=== PATIENT | male | born 1940 | race Caucasian/White ===

== ENCOUNTER 2018-11-29 17:53 | Inpatient (IN) ==
--- NOTE | 2018-11-29 19:19 | Diag Imaging Result Doc PS360 ---
EXAM: CHEST-2 VIEWS 11/29/2018 HISTORY: sob TECHNIQUE: PA and lateral chest COMMENT: There is platelike opacity in both lung bases. There are no previous studies. The inspiration is somewhat suboptimal. IMPRESSION: Bibasilar subsegmental atelectasis. Electronically signed by Leobardo Edge 11/29/2018 7:17 PM
[2018-11-29 19:30] LABS: AGAP 17; ALBUMIN 4.3 g/dL (3.5-5.0); ALKALINE PHOSPHATASE 126 U/L (32-122); BUN 30 mg/dL (8-22); CALCIUM 10.1 mg/dL (8.8-10.2); CHLORIDE 102 mmol/L (98-107); CK PROFILE 59 U/L (24-204); COSMO 302; CREATININE 1.1 mg/dL (0.7-1.2); ESTIMATED GFR > 60; GLUCOSE 357 mg/dL (70-104); GOT 23 U/L (10-34); GPT 29 U/L (10-44); POTASSIUM 3.7 mmol/L (3.5-5.1); SODIUM 141 mmol/L (136-145); TCO2 22 mmol/L (25-35); TOTAL PROTEIN 7.7 g/dL (6.3-8.3)
[2018-11-29 19:37] LABS: INR 1.22
[2018-11-29 19:38] LABS: PTT 33.7 Seconds (22.3-41.8)
[2018-11-29 19:40] LABS: BASO# 0.03 X1000 (0.0-0.2); BASO% 0.2 % (0.0-0.8); EOS# 0.03 X1000 (0.0-0.7); EOS% 0.2 % (0.0-10.0); HEMATOCRIT 42.5 % (42.0-52.0); HEMOGLOBIN 15.6 g/dL (14.0-18.0); IMM GRAN# 0.03 X1000 (0.0-0.04); IMM GRAN% 0.2 % (0.0-0.5); LYMPH# 0.73 X1000 (1.2-3.4); LYMPH% 5.5 % (20.5-51.1); MCH 32.7 PG (27-31); MCHC 36.7 g/dL (33-37); MCV 89.1 FL (81-99); MONO# 0.95 X1000 (0.11-0.59); MONO% 7.1 % (1.7-9.3); MPV 9.7 FL (7.4-10.4); NEUT# 11.54 X1000 (1.4-6.5); NEUT% 86.8 % (42.2-75.2); PLT 316 X1000 (130-400); RBC 4.77 XMIL (4.7-6.1); RDW 11.9 % (11.5-14.5); WBC 13.31 X1000 (4.8-10.8)
[2018-11-29 21:24] LABS: URINE SOURCE CATH
[2018-11-29 21:37] LABS: BILIRUBIN URINE NEGATIVE (NEGATIVE); BLOOD URINE NEGATIVE (NEGATIVE); CLARITY CLEAR (CLEAR); COLOR AMBER; KETONE URINE 1+(Small) mg/dL (NEGATIVE); LEUKOCYTES URINE 1+ (NEGATIVE); NITRITE URINE NEGATIVE (NEGATIVE); PROTEIN URINE 2+(100 mg/dL) mg/dL (NEGATIVE); UROBILINOGEN URINE 1 mg/dL
[2018-11-29 21:56] LABS: URINE BACTERIA 2+ /HFP; URINE EPITHELIAL CELLS <10 /HPF (<10); URINE RBC <10 /HPF (<10); URINE WBC <10 /HPF (<10); URINE YEAST NONE SEEN /HPF
[2018-11-29 21:57] LABS: URINE CAST GRANULAR PRESENT /LPF; URINE CRYSTAL NONE SEEN /HPF
[2018-11-29 23:48] LABS: OCCULT BLOOD 1 NEGATIVE (NEGATIVE)
[2018-11-30] MEDS ORDERED: NS 2,000 ML IV ONE (03:16)
[2018-11-30] MEDS ORDERED: ZOSYN 3.375 GM in NS 50 ML IV ONE (03:18)
--- NOTE | 2018-11-30 07:47 | Diag Imaging Result Doc PS360 ---
EXAM: CT ABD/PELVIS W/IV CONT ONLY INDICATION: pain TECHNIQUE: This exam was performed using automated exposure control, adjustment of mA or kV according to patient size, and/or use of iterative reconstruction technique. COMPARISON: None. FINDINGS: There is mild subsegmental atelectasis at the lung bases. There is evidence of prior granulomatous disease. The liver, gallbladder, spleen, pancreas, and adrenal glands are essentially unremarkable. There are several simple appearing renal cysts bilaterally, more prominent on the right. At the lower pole of the left kidney, there is a 1 cm nodule arising from the cortex that is isodense to the cortex. It is nonspecific and could represent a blood filled cyst. Consider at least follow-up with renal ultrasound. The urinary bladder is unremarkable. The prostate is mildly enlarged. The appendix is normal. There are moderately distended loops of small bowel in the mid and upper abdomen and the stomach is mildly distended. There does appear to be a transition point at the right mid abdomen (see image 104, series 2). This suggests at least a partial small bowel obstruction. Distal to this, the small bowel is decompressed. No focal bowel wall thickening is appreciated. A small duodenal diverticulum is noted incidentally. The remainder of the GI tract is grossly unremarkable. There are degenerative changes throughout the spine and at both hips. IMPRESSION: 1.Moderately distended loops of small bowel with a transition point as described suggesting obstruction. 2.1 cm nodule at the lower pole of the left kidney that is nonspecific. Consider follow-up at least with renal ultrasound. Electronically signed by Justino Hernandez 11/30/2018 7:44 AM
--- NOTE | 2018-11-30 07:56 | Diag Imaging Result Doc PS360 ---
EXAM: ABDOMEN FLAT/UPRIGHT INDICATION: abd pain TECHNIQUE: 3 views COMPARISON: None. FINDINGS: There are moderately gas-distended loops of small bowel throughout the abdomen with air-fluid levels indicating obstruction versus ileus. There is no evidence of large volume free abdominal gas. No definite organomegaly is appreciated. IMPRESSION: Moderately distended loops of small bowel suggesting obstruction versus ileus. Electronically signed by Justino Hernandez 11/30/2018 7:53 AM
--- NOTE | 2018-11-30 09:02 | EKG Report ---
Test Performed on : 11/29/2018 6:36:59 PM Test Reason : shortness of breath Blood Pressure : / mmHG Vent. Rate : 103 BPM Atrial Rate : 103 BPM P-R Int : 206 ms QRS Dur : 100 ms QT Int : 360 ms P-R-T Axes : 049 060 056 degrees QTc Int : 471 ms Sinus tachycardia. Otherwise normal ECG No previous ECGs available Unconfirmed Result
--- NOTE | 2018-11-30 09:26 | Diag Imaging Result Doc PS360 ---
EXAM: KUB ABDOMEN INDICATION: sbo TECHNIQUE: 2 views COMPARISON: 11/29/2018 FINDINGS: Small bowel distention suggesting at least a partial obstruction is again identified. There does appear to be some improvement in the degree of distention of small bowel. Otherwise, the abdomen is essentially stable. IMPRESSION: Some improvement of gaseous distention of small bowel. Electronically signed by Justino Hernandez 11/30/2018 9:23 AM
[2018-11-30] MEDS ORDERED: ZOFRAN IV PRN (13:32)
[2018-11-30] MEDS: HUMULIN R SUBQ SCH ×2 (16:46→22:27)
[2018-11-30] MEDS: PROTONIX IV SCH (16:46)
[2018-11-30] MEDS: ROCEPHIN 1 GM in NS 50 ML IV SCH (16:46)
[2018-11-30] MEDS: SODIUM CHLORIDE 0.9% INJ SCH (16:46)
--- NOTE | 2018-11-30 19:35 | HISTORY AND PHYSICAL ---
PRIMARY CARE PHYSICIAN: In [place]. HISTORY OF PRESENT ILLNESS: Mr. Thao is a 78-year-old male with a history of chronic atrial fibrillation, stroke in the past affecting his speech and memory, and history of PE. He presents with 48 hours of abdominal pain, distention, and discomfort. The patient is a poor historian. Family at the bedside states they were eating yesterday, and he started having abdominal pain to the point where he was not comfortable. He could not sit still, and they brought him to the ER for evaluation last night. In the ER he was noted to have a small bowel obstruction by CT. He has not had any real vomiting, just abdominal pain and distention. He has improved somewhat this morning with IV fluids and bowel rest. He has had a bowel movement, and repeat KUB shows very slight improvement. Currently there are no inpatient beds at [facility]. We are going to admit him here and monitor him closely. If he has any worsening, he may need to be transferred to [facility]. PAST MEDICAL HISTORY: 1. Chronic atrial fibrillation, on anticoagulation. 2. History of stroke affecting speech and memory. 3. Diabetes mellitus type 2. 4. History of PE. 5. Hypertension. 6. Asthma. 7. BPH. 8. Bladder cancer. PAST SURGICAL HISTORY: Bladder resection, hernia repair, DC cardioversion. SOCIAL HISTORY: No tobacco, alcohol or drug use. Family is at the bedside. He is from [place] visiting his daughter, who lives here in [place]. FAMILY HISTORY: Noncontributory. REVIEW OF SYSTEMS: A 10-point review of systems was obtained and found to be negative with the exception of the HPI. HOME MEDICATIONS: Yet to be compiled. He is on Eliquis and aspirin. ALLERGIES: Apple, Keflex, unspecified tree nut, pecan nut, and soy. PHYSICAL EXAMINATION: VITAL SIGNS: Blood pressure is 147/88, heart rate 86, respiratory rate 96% on room air, temperature 98 degrees Fahrenheit. GENERAL: This is a well-developed, well-nourished male lying in the hospital bed in no acute distress. NEUROLOGIC: He is somewhat lethargic. He answers orientation questions incorrectly with respect to the date and the place but is able to name our President. He follows commands without focal deficits. HEENT: Head is atraumatic and normocephalic. Pupils are equal, round and reactive to light. Oral mucosa is a bit dry. NECK: Trachea is midline. There is no JVD. CHEST: Clear to auscultation bilaterally. CV: Irregular rate and rhythm. S1 and S2 is noted. GI: Slightly distended and tender to palpation in the epigastric region. Bowel sounds are active. EXTREMITIES: No edema. Pulses 1+ bilaterally. DIAGNOSTIC DATA: Chest x-ray - bibasilar subsegmental atelectasis. EKG - sinus tachycardia. Abdominal x-ray - moderately distended loops of small bowel, suggesting obstruction versus ileus. Abdomen and pelvis CT - moderately distended loops of small bowel with transition point as described, suggesting obstruction. A 2.1 cm nodule at the lower pole of the left kidney that is nonspecific. Consider followup with at least a renal ultrasound. A KUB on 11/30/2018 showed some improvement in gaseous distention of small bowel. WBCs 13.31, hemoglobin 15.6, hematocrit 42.5, platelet count 316. INR 1.22. Sodium 141, potassium 3.7, chloride 102. CO2 is 22, anion gap 17, BUN 30, creatinine 1.1, glucose 357. AST is 23, ALT 21, alkaline phosphatase 126. Troponin negative. ProBNP 250. Lactic acid 2.3. UA shows a questionable urinary tract infection. Occult blood is negative. ASSESSMENT/PLAN: 1. Small bowel obstruction: Improving. We will give him clear liquids and see how he tolerates that. We will consult surgery and check serial KUBs. Will make sure he has Zofran, Protonix and IV fluids. 2. Urinary tract infection. The patient is really unable to verbalize if he has any dysuria. He has a history of confusion, so we will go ahead and treat and follow culture data. 3. Diabetes mellitus. Will add pattern sugar and sliding-scale insulin. Will also check a hemoglobin A1c. 4. Paroxysmal atrial fibrillation, on anticoagulation, currently in sinus rhythm. Will hold his anticoagulant in case he needs surgery. Continue to monitor him on telemetry. 5. Deep venous thrombosis prophylaxis with sequential compression devices. 6. Further recommendations to follow. Dictated by PENELOPE Prather for Oj George MD cc: PENELOPE Prather MD [facility]
--- NOTE | 2018-12-01 02:42 | HISTORY AND PHYSICAL ---
ADDENDUM: Patient seen and examined by myself. Full note dictated and discussed with nurse practitioner. Patient initially presented to the hospital with shortness of breath. He was noted to have abdominal distention. We will admit patient to the hospital. Advance diet as tolerated. Certainly is possible he has urinary tract infection. We will treat with antibiotics until culture is negative. PLAN: We will continue antibiotics. Continue to follow. Further orders as needed. cc: Oj George MD
[2018-12-01 06:44] LABS: HEMATOCRIT 40.8 % (42.0-52.0); HEMOGLOBIN 14.6 g/dL (14.0-18.0); MCH 32.8 PG (27-31); MCHC 35.8 g/dL (33-37); MCV 91.7 FL (81-99); MPV 9.6 FL (7.4-10.4); RBC 4.45 XMIL (4.7-6.1); RDW 11.9 % (11.5-14.5); WBC 5.52 X1000 (4.8-10.8)
[2018-12-01] MEDS: HUMULIN R SUBQ SCH ×4 (07:02→22:07)
[2018-12-01 07:24] LABS: AGAP 11; BUN 13 mg/dL (8-22); CALCIUM 8.6 mg/dL (8.8-10.2); CHLORIDE 103 mmol/L (98-107); COSMO 285; CREATININE 0.8 mg/dL (0.7-1.2); ESTIMATED GFR > 60; GLUCOSE 197 mg/dL (70-104); MAGNESIUM 1.4 mg/dL (1.5-2.7); POTASSIUM 3.3 mmol/L (3.5-5.1); SODIUM 140 mmol/L (136-145); TCO2 26 mmol/L (25-35)
--- NOTE | 2018-12-01 09:51 | Diag Imaging Result Doc PS360 ---
EXAM: KUB ABDOMEN HISTORY: sbo eval TECHNIQUE: Abdomen single view COMPARISON: 11/30/2018 FINDINGS: There are multiple dilated small bowel loops in the mid abdomen. These have not decreased in prominence compared to the prior exam. No organomegaly. Prominent degenerative changes to the lumbar spine. Prominent atherosclerosis. IMPRESSION: No improvement in the dilated small bowel loops consistent with at least a partial obstruction. Electronically signed by Remigio Martinez 12/01/2018 9:49 AM
[2018-12-01] MEDS ORDERED: MAGNESIUM SULFATE 2 GM/S.W.I. 2 GM/50 ML IVPB IV ONE (14:23)
[2018-12-01] MEDS ORDERED: KLOR-CON PO ONE (14:33)
[2018-12-01] MEDS: POTASSIUM CHLORIDE 20 MEQ in 1/2 NS 1,000 ML IV SCH (17:01)
[2018-12-01] MEDS: PROTONIX IV SCH (17:09)
[2018-12-01] MEDS: ROCEPHIN 1 GM in NS 50 ML IV SCH (17:09)
[2018-12-01] MEDS: SODIUM CHLORIDE 0.9% INJ SCH (17:09)
--- NOTE | 2018-12-01 17:37 | PROGRESS NOTE ---
DATE: 12/01/2018 SUBJECTIVE: The patient is lying comfortably in bed. He is still having some abdominal distention, but he feels better. He has been passing gas and he has been tolerating a liquid diet. He is not having nausea or vomiting. Abdomen x-ray today showed no improvement in the dilated small bowel loops consistent with at least partial obstruction. I have placed this patient back on most of his home medications, but I will hold for now his anticoagulation. I have consulted Surgery department and actually I personally called Dr. Sepulveda to talk about this case. I will replace the potassium. I will replace the magnesium. I will put this patient also on gentle IV fluids with some potassium as well. Kidney function looks better. OBJECTIVE: Vital Signs: Temperature 97.9 degrees, pulse 72, respiratory rate 18, blood pressure 151/89, oxygen saturation 95% on room air. HEENT: Head normocephalic. No trauma. PERRLA. Neck: Supple. No JVD. No masses. Central trachea. Chest: Clear to auscultation. No wheezing. No rales. Cardiovascular: Regular rhythm and rate. Abdomen: Soft, distended, but positive bowel sounds, no signs of peritoneal irritation. Extremities: No edema, no clubbing, no cyanosis. Neurological: The patient is alert. He is oriented. He is answering all my questions. LABORATORY DATA: WBC 5.5, hemoglobin 14.6, hematocrit 40.8, platelets 247,000. Sodium 140, potassium 3.3, chloride 103, bicarbonate 26, BUN 13, creatinine 0.8, glucose 197, calcium 8.6, magnesium 1.4. ASSESSMENT AND PLAN: 1. Small bowel obstruction, probably partial obstruction. He is tolerating liquid diet. He has been passing gas. His abdomen is still distended and the x-ray still shows bowel dilatation. I have consulted Surgery department to evaluate this patient. I will continue with liquid diet and I have placed this patient back on most of his home medication. 2. Possible urinary tract infection. This patient upon admission was really unable to verbalize if he has any dysuria since he was confused apparently, so he was placed on antibiotics. We will just continue with that and monitor the cultures. Blood culture negative so far. In the urine, he has some bacteria but no nitrates. 3. Type 2 diabetes. We will continue with pattern of blood sugar and sliding scale insulin. I will check a hemoglobin A1c. 4. Paroxysmal atrial fibrillation. At this moment, he seems to be in sinus rhythm. We held the anticoagulation just in case he needs surgery. He seems to be feeling better, but his abdomen is still distended and the x-ray still showing at least partial obstruction. 5. Deep vein thrombosis prophylaxis with sequential compression devices. 6. Previous history of stroke, aware. cc: Mitesh Gregory MD
[2018-12-01] MEDS: DULCOLAX PR SCH ×2 (18:36→21:56)
[2018-12-01] MEDS: LOPRESSOR PO SCH (18:37)
[2018-12-01] MEDS: CARDIZEM CD PO SCH (18:37)
[2018-12-01] MEDS: PRILOSEC PO SCH (18:37)
--- NOTE | 2018-12-01 19:12 | GENERAL SURGERY CONSULTATION ---
DATE: 12/01/2018 REQUESTING PHYSICIAN: Mitesh Gregory MD REASON FOR CONSULTATION: Small bowel obstruction. HISTORY OF PRESENT ILLNESS: A 78-year-old male with a history of chronic atrial fibrillation, stroke in the past, history of PE, with multiple abdominal surgeries, presenting now with abdominal discomfort. He was seen in emergency department and had a CT scan that showed a small bowel obstruction with possible transition point in the right side. He is feeling better now, is tolerating clear liquid diet. He is passing gas and having bowel movements, but his abdominal film still seems to be somewhat showing an obstruction. Currently, he has been transferred over from the [facility] to [facility] and is doing okay. He has been hemodynamically stable. I was asked to weigh an opinion. PAST MEDICAL HISTORY: 1. Chronic atrial fibrillation. 2. History of stroke. 3. Diabetes mellitus, type 2. 4. History of PE. 5. Hypertension. 6. Asthma. 7. BPH. 8. History of bladder cancer. PAST SURGICAL HISTORY: Includes bladder resection, hernia repair x2, DC cardioversion. SOCIAL HISTORY: No alcohol, tobacco, or illicit drugs. The patient currently lives in [place]. FAMILY HISTORY: Reviewed with patient and noncontributory. HOME MEDICATIONS: Of note, he is on Eliquis. Full list reviewed. ALLERGIES: Cephalosporins and apples. REVIEW OF SYSTEMS: A full 10 point review of systems was obtained and negative, except as specified in the HPI. PHYSICAL EXAMINATION: Vital Signs: Patient was currently afebrile. His vital signs were stable. General: No acute distress. HEENT: Normocephalic, atraumatic. Pupils equal, round, and reactive to light. Mucous membranes moist. Oropharynx benign. Neck: Supple. Trachea midline. Cardiovascular: Irregularly irregular. Lungs: Grossly clear. Abdomen: Soft ,some distention, and some mild tenderness, but no real peritoneal signs. Extremities: He moves all extremities. Neurologic: Grossly intact. Skin: No signs of jaundice. Vascular: All extremities perfused. DIAGNOSTIC STUDIES: Laboratories from today were reviewed. Imaging from this morning and CT scan reviewed. ASSESSMENT AND PLAN: A 78-year-old with small bowel obstruction. 1. Small bowel obstruction. At this time, clinically, it sounds like he is improving. We will continue with current regimen. We will follow up with the a.m. films. At this point, we will try to avoid surgery and make sure the patient continues to progress. He has some signs of return of bowel function so hopefully again, this will continue. 2. Multiple medical comorbidities, currently being managed by the hospitalist service. cc: Wilmer Sepulveda MD
[2018-12-02 07:38] LABS: HEMATOCRIT 38.1 % (42.0-52.0); HEMOGLOBIN 13.6 g/dL (14.0-18.0); MCH 32.3 PG (27-31); MCHC 35.7 g/dL (33-37); MCV 90.5 FL (81-99); MPV 9.6 FL (7.4-10.4); RBC 4.21 XMIL (4.7-6.1); RDW 11.9 % (11.5-14.5); WBC 5.34 X1000 (4.8-10.8)
[2018-12-02 07:57] LABS: AGAP 11; BUN 9 mg/dL (8-22); CALCIUM 8.6 mg/dL (8.8-10.2); CHLORIDE 103 mmol/L (98-107); COSMO 278; CREATININE 0.8 mg/dL (0.7-1.2); ESTIMATED GFR > 60; GLUCOSE 122 mg/dL (70-104); MAGNESIUM 1.7 mg/dL (1.5-2.7); POTASSIUM 3.9 mmol/L (3.5-5.1); SODIUM 139 mmol/L (136-145); TCO2 25 mmol/L (25-35)
[2018-12-02] MEDS: HUMULIN R SUBQ SCH ×4 (09:38→23:46)
--- NOTE | 2018-12-02 10:34 | GENERAL SURGERY PROGRESS NOTE ---
DATE: 12/02/2018 SUBJECTIVE: Patient seems to be doing better. He says he has passed gas and had a bowel movement. He is not complaining of any abdominal pain. OBJECTIVE: Vital Signs: Patient is currently afebrile. Vital signs are stable. General: No acute distress. HEENT: Normocephalic, atraumatic. Pupils equal, round, reactive to light. Mucous membranes moist. Oropharynx benign. Neck: Supple. Trachea midline. Cardiovascular: Regular rate and rhythm. Lungs: Grossly clear. Abdomen: Soft, nontender. Mild distention. Extremities: Moves all extremities. Neurologic: Grossly intact. Skin: No signs of jaundice. Vascular: All extremities perfused. LABORATORY: None this morning as of yet. ASSESSMENT AND PLAN: A 78-year-old gentleman with resolving small bowel obstruction. Resolving small bowel obstruction: At this time, we will try him on a gastrointestinal soft diet to see how he does. If he does not seem to make any improvement, we will back off his diet. Otherwise, we will continue to make forward progress. cc: Wilmer Sepulveda MD
[2018-12-02] MEDS: PROSCAR PO SCH (10:53)
[2018-12-02] MEDS: PRILOSEC PO SCH (10:53)
[2018-12-02] MEDS: CARDIZEM CD PO SCH (10:54)
[2018-12-02] MEDS: LOPRESSOR PO SCH (10:54)
[2018-12-02] MEDS: ELIQUIS PO SCH ×2 (10:54→20:42)
[2018-12-02] MEDS: DULCOLAX PR SCH ×2 (10:54→20:42)
--- NOTE | 2018-12-02 11:18 | Diag Imaging Result Doc PS360 ---
EXAM: KUB ABDOMEN - 12/02/2018 HISTORY: sbo eval TECHNIQUE: Portable AP spine abdomen COMPARISON: 12/01/2018 FINDINGS: There has been interval decrease in gaseous small bowel distention. There is gas visible in multiple nondistended to slightly distended small bowel loops. There is gas visible in nondistended colon. IMPRESSION: Interval decrease in gaseous small bowel distention. Electronically signed by Terrance Wilkerson 12/02/2018 11:16 AM
[2018-12-02] MEDS ORDERED: FLOMAX PO SCH (13:00)
--- NOTE | 2018-12-02 13:52 | PROGRESS NOTE ---
DATE: 12/02/2018 SUBJECTIVE: Patient lying comfortably in bed, as per the patient, he had a bowel movement yesterday and he has been passing gas. X-ray looks better. The diet has been advanced. We will monitor this patient. I want him to walk a little bit more today. OBJECTIVE: Vital Signs: Temperature 97.8 degrees, pulse 97, respiratory rate 20, blood pressure 120/66, oxygen saturation 94% on room air. HEENT: Head normocephalic. No trauma. PERRLA. Neck: Supple. No JVD. No masses. Central trachea. Chest: Clear to auscultation. No wheezing. No rales. Abdomen: Soft, distended, but positive bowel sounds. No signs of peritoneal irritation. Extremities: No edema. No clubbing. No cyanosis. Neurological: Alert and oriented. He is answering my questions. LABORATORY DATA: WBC 5.3, hemoglobin 13.6, hematocrit 38.1, platelets 251,000. Sodium 139, potassium 3.9, chloride 103, bicarbonate 25, BUN 9, creatinine 0.8, glucose 122, calcium 8.6, magnesium 1.7. ASSESSMENT AND PLAN: 1. Small-bowel obstruction. I do believe this is getting better. His diet has been advanced. X- ray looks better compared with the previous days, he has been passing gas and apparently he had a bowel movement. Surgery Department on board. We will monitor this patient closely, I will ask for more physical activity on this patient. 2. Possible urinary tract infection. This patient upon admission was really unable to verbalize if he was having dysuria, so he was started on antibiotics. Blood culture so far negative. 3. Type 2 diabetes. Continue with patterning of blood sugar and sliding scale insulin. Hemoglobin A1c around 9, is a little bit uncontrolled. 4. Paroxysmal atrial fibrillation. At this moment, we continue with his home medications, we will continue to monitor, he has been placed on his anticoagulation again. Blood pressure is stable. 5. Deep vein thrombosis prophylaxis with sequential compression devices. 6. Previous history of stroke. Aware. cc: Mitesh Gregory MD
[2018-12-02] MEDS: PROTONIX IV SCH (15:43)
[2018-12-02] MEDS: SODIUM CHLORIDE 0.9% INJ SCH (15:43)
[2018-12-02] MEDS: ROCEPHIN 1 GM in NS 50 ML IV SCH (17:17)
[2018-12-02] MEDS: POTASSIUM CHLORIDE 20 MEQ in 1/2 NS 1,000 ML IV SCH (20:41)
[2018-12-02] MEDS: GLUCOPHAGE XR PO SCH (20:47)
[2018-12-03] MEDS: HUMULIN R SUBQ SCH (06:39)
--- NOTE | 2018-12-03 07:24 | GENERAL SURGERY PROGRESS NOTE ---
DATE: 12/03/2018 SUBJECTIVE: The patient seems to be doing okay. He has had bowel movements. He is tolerating his diet. He had hamburgers last night. OBJECTIVE: Vital Signs: The patient is currently afebrile. His vital signs are stable. General: No acute distress. HEENT: Normocephalic, atraumatic. Pupils equal, round, reactive to light. Mucous membranes moist. Oropharynx benign. Neck: Supple. Trachea midline. Cardiovascular: Regular rate and rhythm. Lungs: Grossly clear. Abdomen: Soft. Minimally distended, but nontender. No peritoneal signs. Extremities: Moves all extremities. Neurologic: Grossly intact. Skin: No signs of jaundice. Vascular: All extremities perfused. LABORATORY DATA: None this morning as of yet. ASSESSMENT AND PLAN: A 78-year-old gentleman with resolving small bowel obstruction. Resolving small bowel obstruction. At this time, I think he is likely safe to be discharged. He is tolerating a regular diet. The patient probably can drive back to [place]. cc: Wilmer Sepulveda MD
[2018-12-03 07:44] VITALS: BP 159/79
[2018-12-03] MEDS: LOPRESSOR PO SCH (09:33)
[2018-12-03] MEDS: PRILOSEC PO SCH (09:33)
[2018-12-03] MEDS: ELIQUIS PO SCH (09:33)
[2018-12-03] MEDS: PROSCAR PO SCH (09:33)
[2018-12-03] MEDS: CARDIZEM CD PO SCH (09:33)
[2018-12-03] MEDS: GLUCOPHAGE XR PO SCH (09:33)
[2018-12-03] MEDS: DULCOLAX PR SCH (09:33)
--- NOTE | 2018-12-03 21:00 | DISCHARGE SUMMARY ---
ADMISSION DATE: 11/30/2018 DISCHARGE DATE: 12/03/2018 DISCHARGE DIAGNOSES: 1. Small bowel obstruction/resolved. 2. Possible urinary tract infection, no symptoms. 3. Type 2 diabetes, hemoglobin A1c 9. 4. Paroxysmal atrial fibrillation. 5. Possible previous history of stroke. PROCEDURES PERFORMED: 1. Chest x-ray dated 11/29/2018 impression, bibasilar subsegmental atelectasis. Abdomen x-ray dated 11/29/2018 impression, moderately distended loops of small bowel suggesting obstruction versus ileus. 2. Abdomen and pelvis CT scan dated 11/29/2018 impression, moderately distended loops of small bowel with a transition point suggesting obstruction, 2.1 cm nodule at the lower pole of the kidney that is nonspecific. Abdomen x-ray dated 11/30/2018 impression, some improvement of the gaseous distention of the small bowel. 3. Abdomen x-ray dated 12/01/2018 impression no improvement in the dilated small bowel loops consistent with at least partial obstruction. Abdomen x-ray dated 12/02/2018, interval decrease in gaseous small bowel distention. CONSULTS: Surgery Department Dr. Sepulveda. HOSPITAL COURSE: 78-year-old male with a past medical history of chronic atrial fibrillation, stroke in the past affecting his speech and memory, history of PE, he presented to [facility] with 48 hours of abdominal pain, distention and discomfort, the patient was a poor historian but the family at the bedside states that they were eating the day before of admission and then he started having abdominal pain to the point that he was not comfortable. In the ER he was noted to have a small-bowel obstruction by CT, he was not really vomiting just abdominal pain and distention. He has improved somewhat in the morning with IV fluids and bowel rest the day of admission, he was transferred to [facility] and Surgery Department evaluated this patient, since this patient was passing gas and the abdomen was getting better we decided to put this patient back on his home medications including anticoagulation, the patient was improving on a daily basis. He was tolerating p.o. including GI soft diet. He had a bowel movement today around 3 a.m. and Surgery Department reevaluated this patient today around 6 a.m. and they think that likely this patient can be discharged safe, since he is passing gas, tolerating p.o. and having bowel movement, at the moment of discharge this patient was in a stable medical condition. I talked to the patient about his diet and I recommended to take stool softeners, also if he is planning to go back to [place] by car I recommended to do multiple stops so he can walk a little bit during the trip, he seems to understand. He seems to be stable. I am not going to change or stop any treatment. I will add just stool softeners and follow up with his doctor at least in 1 week or sooner. DISCHARGE MEDICATIONS: Tamsulosin 2 tablet p.o. daily, finasteride 5 mg p.o. daily, omeprazole 40 mg p.o. daily, metoprolol 25 mg p.o. daily, losartan 25 mg p.o. daily, hydrochlorothiazide 25 mg p.o. daily, gentamicin ophthalmic drops, Flonase 1 spray twice a day nasally, aspirin 81 mg p.o. daily, diltiazem 240 mg p.o. daily, Eliquis 5 mg p.o. b.i.d., albuterol sulfate 2 puff inhaler as needed, MiraLAX 17 g p.o. daily, metformin 1000 mg p.o. b.i.d. and Dulcolax 10 mg per rectal q.p.m. as needed. VITAL SIGNS: Temperature 97.7 degrees, pulse 75, respiratory rate 20, blood pressure 159/79, oxygen saturation 95 on room air. HEENT: Head normocephalic. No trauma. PERRLA. Neck: Is supple. No JVD. No masses. Central trachea. Chest: Clear to auscultation. No wheezing, no rales. Abdomen: Soft, slightly distended but positive bowel sounds, no pain. Extremities: No edema, no clubbing, no cyanosis. Neurologic: The patient is alert, he is following commands and answering my questions. LABORATORY: From 12/02/2018 WBC 5.3, hemoglobin 13.6, hematocrit 38.1, platelets 251,000. Sodium 139, potassium 3.9, chloride 103, bicarbonate 25, BUN 9, creatinine 0.8, glucose 122, calcium 8.6, magnesium 1.7. FOLLOWUP: With his primary care doctor in a week or sooner. We recommended a soft diet and stool softeners, physical activity. TIME SPENT: 35 minutes. cc: Mitesh Gregory MD
--- NOTE | 2018-12-04 15:45 | PROVIDER DOCUMENTATION ---
This chart was entered by Laquita Clark Scribe, acting as scribe for Daniel Urrutia MD. HPI-General Adult - General Chief Complaint: Shortness of Breath Stated Complaint: WEAKNESS Time Seen by Provider: 11/29/18 22:01 Source: patient Allergies/Adverse Reactions: Patient Allergies Allergy/AdvReac Type Severity Reaction Status Date / Time apple Allergy ANAPHYLAXIS Verified 11/29/18 18:29 cephalexin Allergy SWELLING Verified 11/29/18 18:29 nut - unspecified Allergy ANAPHYLAXIS Verified 11/29/18 18:29 pecan nut Allergy ANAPHYLAXIS Verified 11/29/18 18:29 soy Allergy ANAPHYLAXIS Verified 11/29/18 18:29 Home Medications: Home Medication List Medication Instructions Recorded Confirmed Last Taken Type Albuterol Sulfate [Ventolin Hfa] 2 puff IH DIRECTED PRN 05/27/18 11/30/18 Unknown History Apixaban [Eliquis] 5 mg PO BID 05/27/18 11/30/18 Unknown History Diltiazem HCl [Diltiazem ER] 240 mg PO DAILY 05/27/18 11/30/18 Unknown History Fluticasone 50 Mcg Nasal Foster 1 spray IN BID 05/27/18 11/30/18 Unknown History [Flonase] Gentamicin 0.3% Oph Drops 2 drp BOTH EYES TID #1 bottle 05/27/18 11/30/18 Unknown Rx Hydrochlorothiazide 25 mg PO DAILY 05/27/18 11/30/18 Unknown History Losartan Potassium 25 mg PO DAILY 05/27/18 11/30/18 Unknown History Tamsulosin [Flomax] 2 tab PO 1300 05/27/18 11/30/18 Unknown History Aspirin 81 mg PO DAILY 11/30/18 11/30/18 Unknown History Finasteride 5 mg PO DAILY 11/30/18 11/30/18 Unknown History Metoprolol [Lopressor] 25 mg PO DAILY 11/30/18 11/30/18 Unknown History Omeprazole 40 mg PO DAILY 11/30/18 11/30/18 Unknown History Bisacodyl [Dulcolax] 10 mg CO QPM #30 supp 12/03/18 Unknown Rx Metformin E.r. 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 pt denies chest pain, fever/chills. no diarrhea, nausea or vomiting Location of Pain/Injury: reports: abdomen Pain Radiation: reports: no radiation Quality of Pain: reports: sharp Severity: reports: moderate Onset/Duration: reports: this morning Timing: reports: still present Context/Activities at Onset: reports: light activity Modifying Factors: improves with: nothing Associated Symptoms: reports: shortness of breath. denies: chest pain, constipation, diarrhea, fever/chills, genitourinary problems, nausea, vomiting Similar Symptoms Previously?: No Recently seen or treated by another doctor?: No Review of Systems - Adult - REVIEW OF SYSTEMS - ADULT Constitutional: denies: chills, fever Eyes: denies: blurred vision, double vision Ears, Nose, Mouth & Throat: reports: no symptoms reported Cardiovascular: denies: chest pain, palpitations, syncope Respiratory: reports: shortness of breath. denies: cough, dyspnea on exertion Gastrointestinal: reports: abdominal pain. denies: diarrhea, nausea, vomiting Genitourinary: denies: dysuria, frequency, flank pain Musculoskeletal: denies: back pain, neck pain Integumentary: reports: no symptoms reported Neurological: denies: dizziness/vertigo, headache/migraines Psychiatric: reports: no symptoms reported Endocrine: reports: no symptoms reported Hematologic/Lymphatic: reports: no symptoms reported Allergic/Immunologic: reports: no symptoms reported All Other Systems: Reviewed and Negative Past History - Adult - PAST MEDICAL HISTORY-ADULT Review of Records: reports: Old Records Reviewed, Nursing Assessment Review, Medications Reviewed, Social history reviewed & non-contributory. Major Childhood Illnesses: reports: denies history Cardiovascular: reports: denies history Respiratory: reports: denies history Gastrointestinal: reports: denies history Obstetrical/Gynecological: reports: denies history Genitourinary: reports: denies history Musculoskeletal: reports: denies history Neurological: reports: denies history Endocrine/Immune: reports: denies history Other Conditions: reports: denies history - IMMUNIZATION STATUS Childhood Immunizations: See Nurse Assessment Flu Vaccine: See Nurse Assessment - FAMILY HISTORY Family History: reviewed, not pertinent - SOCIAL HISTORY Smoking: denies Substance Use: denies Living Situation: family Physical Exam-General - PHYSICAL EXAM-ADULT Initial Vital Signs Reviewed: Yes - CONSTITUTIONAL General Appearance: alert, no apparent distress - EYES Eyes: PERRL/EOMI - HEAD, EARS, NOSE, MOUTH & THROAT HENMT: normocephalic/atraumatic, moist mucous membranes, normal ENT inspection - NECK Neck: non-tender, full range of motion, supple, normal inspection - RESPIRATORY Respiratory: chest non-tender, lungs clear, normal breath sounds - CARDIOVASCULAR Cardiovascular: normal peripheral pulses, tachycardia - GASTROINTESTINAL (ABDOMEN) Abdominal Exam: normal bowel sounds, non tender, soft - LYMPHATIC Lymphatic: no adenopathy - MUSCULOSKELETAL Back Exam: normal inspection, no CVA tenderness, no vertebral tenderness Extremity: normal range of motion, non-tender, normal gait, pedal edema - SKIN Integumentary: normal color, normal turgor, warm/dry - NEUROLOGIC Neurologic: grossly normal, no motor/sensory deficits - PSYCHIATRIC Psych/Mental Status: normal mood/affect Progress - PLAN OF CARE/RESULTS Progress/Plan/Lab Results: Vital Signs - 8 hr 11/29/18 18:23 Temperature 97.8 F Pulse Rate 111 H Respiratory Rate 24 Blood Pressure 150/82 O2 Sat by Pulse Oximetry 96 Laboratory Results - last 24 hr 11/29/18 11/29/18 11/29/18 18:46 18:48 18:48 WBC 13.31 H RBC 4.77 Hgb 15.6 Hct 42.5 MCV 89.1 MCH 32.7 H MCHC 36.7 RDW Std Deviation 11.9 Plt Count 316 MPV 9.7 Immature Gran % (Auto) 0.2 Neut % (Auto) 86.8 H Lymph % (Auto) 5.5 L [place] % (Auto) 7.1 Eos % (Auto) 0.2 Baso % (Auto) 0.2 Immature Gran # (Auto) 0.03 Neut # (Auto) 11.54 H Lymph # (Auto) 0.73 L [place] # (Auto) 0.95 H Eos # (Auto) 0.03 Baso # (Auto) 0.03 PT INR PTT (Actin FS) Sodium 141 Potassium 3.7 Chloride 102 Carbon Dioxide 22 L Anion Gap 17 BUN 30 H Creatinine 1.1 Estimated GFR/1.73 m2 > 60 BUN/Creatinine Ratio 27 Glucose 357 H Calculated Osmolality 302 Calcium 10.1 Total Bilirubin 0.60 AST 23 ALT 29 Alkaline Phosphatase 126 H Creatine Kinase 59 Troponin T [id number] Pept Total Protein 7.7 Albumin 4.3 Globulin 3.0 Albumin/Globulin Ratio 1.0 Plasma Lactate 2.3 H Urine Source Urine Color Urine Clarity Urine pH Ur Specific [place] Urine Protein Urine Ketones Urine Blood Urine Nitrite Urine Bilirubin Urine Urobilinogen Urine Microscopic RBC Urine WBC Urine Microscopic WBC Ur Epithelial Cells Urine Crystals Urine Bacteria Urine Casts Urine Yeast Urine Glucose 11/29/18 11/29/18 11/29/18 18:48 18:48 18:48 WBC RBC Hgb Hct MCV MCH MCHC RDW Std Deviation Plt Count MPV Immature Gran % (Auto) Neut % (Auto) Lymph % (Auto) [place] % (Auto) Eos % (Auto) Baso % (Auto) Immature Gran # (Auto) Neut # (Auto) Lymph # (Auto) [place] # (Auto) Eos # (Auto) Baso # (Auto) PT 16.0 INR 1.22 PTT (Actin FS) 33.7 Sodium Potassium Chloride Carbon Dioxide Anion Gap BUN Creatinine Estimated GFR/1.73 m2 BUN/Creatinine Ratio Glucose Calculated Osmolality Calcium Total Bilirubin AST ALT Alkaline Phosphatase Creatine Kinase Troponin T < 0.010 [id number] Pept 250 Total Protein Albumin Globulin Albumin/Globulin Ratio Plasma Lactate Urine Source Urine Color Urine Clarity Urine pH Ur Specific [place] Urine Protein Urine Ketones Urine Blood Urine Nitrite Urine Bilirubin Urine Urobilinogen Urine Microscopic RBC Urine WBC Urine Microscopic WBC Ur Epithelial Cells Urine Crystals Urine Bacteria Urine Casts Urine Yeast Urine Glucose 11/29/18 20:05 WBC RBC Hgb Hct MCV MCH MCHC RDW Std Deviation Plt Count MPV Immature Gran % (Auto) Neut % (Auto) Lymph % (Auto) [place] % (Auto) Eos % (Auto) Baso % (Auto) Immature Gran # (Auto) Neut # (Auto) Lymph # (Auto) [place] # (Auto) Eos # (Auto) Baso # (Auto) PT INR PTT (Actin FS) Sodium Potassium Chloride Carbon Dioxide Anion Gap BUN Creatinine Estimated GFR/1.73 m2 BUN/Creatinine Ratio Glucose Calculated Osmolality Calcium Total Bilirubin AST ALT Alkaline Phosphatase Creatine Kinase Troponin T Eis-[id number]-[id number] Pept Total Protein Albumin Globulin Albumin/Globulin Ratio Plasma Lactate Urine Source CATH Urine Color ABELINO Urine Clarity CLEAR Urine pH 5.0 Ur Specific [place] 1.020 Urine Protein 2+(100 mg/dL) A Urine Ketones 1+(Small) A Urine Blood NEGATIVE Urine Nitrite NEGATIVE Urine Bilirubin NEGATIVE Urine Urobilinogen 1 Urine Microscopic RBC <10 Urine WBC 1+ A Urine Microscopic WBC <10 Ur Epithelial Cells <10 Urine Crystals NONE SEEN Urine Bacteria 2+ Urine Casts GRANULAR PRESENT Urine Yeast NONE SEEN Urine Glucose 1+(100 mg/dL) A Orders Category Date Time Status CHEST-2 VIEWS [RAD] Stat Exams 11/29/18 18:30 Completed AMYLASE [CHEM] Stat Lab 11/29/18 22:32 Ordered BLOOD CULTURE [BLDCUL] Stat Lab 11/29/18 18:56 Results CBC WITH ELECTRONIC DIFF [HEME] Stat Lab 11/29/18 18:48 Completed CK PROFILE [SP CHEM] Stat Lab 11/29/18 18:48 Completed COMPREHENSIVE METABOLIC PANEL [CHEM] Stat Lab 11/29/18 18:48 Completed LACTATE, PLASMA [CHEM] Stat Lab 11/29/18 18:46 Completed LIPASE [CHEM] Stat Lab 11/29/18 22:32 Uncollected PRO B-NATRIURETIC PEPTIDE Stat Lab 11/29/18 18:48 Completed PROTIME WITH INR [COAG] Stat Lab 11/29/18 18:48 Completed PTT [COAG] Stat Lab 11/29/18 18:48 Completed TROPONIN T Stat Lab 11/29/18 18:[address] [URINALYSIS] Stat Lab 11/29/18 20:05 Completed URINE MICROSCOPIC [URINALYSIS] Stat Lab 11/29/18 20:05 Completed CP/SOB/Palp >45 yrs of Age Stat Oth 11/29/18 18:30 Ordered EKG [EKG] Stat Ther 11/29/18 18:30 Ordered Result Diagrams: 12/02/18 06:46 12/02/18 06:46 - EKG 1 Time of EKG reading by physician:: 18:41 EKG Read and Signed by:: Man Traylor EKG Interpretation (*Must complete 3 of following elements*): Normal Rate: 103 Rhythm: sinus tach Doss: normal QRS: normal CO Interval: normal ST Wave: normal - XRAY 1 XRAY Study: Chest Impression: Abnormal ( Signed EXAM: CHEST-2 VIEWS 11/29/2018 HISTORY: sob TECHNIQUE: PA and lateral chest COMMENT: There is platelike opacity in both lung bases. There are no previous studies. The inspiration is somewhat suboptimal. IMPRESSION: Bibasilar subsegmental atelectasis. Electronically signed by Leobardo Edge 11/29/2018 7:17 PM 11/29/181916 Interpreting Physician: Leobardo Edge MD Dictated Date/Time: 11/29/181915 cc: Man Traylor MD; None,PCP) Departure - Departure Date of Disposition Decision: 11/30/18 Time of Disposition Decision: 16:00 DIAGNOSIS: SBO (small bowel obstruction), UTI (urinary tract infection) Disposition: ADMITTED INPATIENT 09 Certified Medical Emergency: Emergent Condition: Stable - Critical Care Note This patient required my direct & personal management of CC.: No Attestation - Physician/ ANGELICA Attestation Patient care was provided by Advanced Practice Provider:: No The physician spent face to face time with patient:: Yes Advanced Practice Provider documentation review:: Supervising physician onsite and consulted in the evaluation and care of this patient. The physician did have a face to face encounter with the patient. This chart was documented by the indicated scribe, (Laquita Clark, Scribjohn paul) and accurately reflects the services I performed and decisions made by me, Daniel Billy MD, as attested by the provider's signature.
== END 2018-12-03 11:09 | disposition home or self-care (01) | DRG 390 ==
LOC: P.ED 17:53 → P.EDIPHOLD 11-30 07:49 → SUATTDRO 11-30 07:49 → 4N 11-30 13:30
PROVIDERS: ATTEND Internal Medicine
CPT/HCPCS: 71020; 71046; 74000; 74018; 74019; 74020; 74177; 80048; 80053; 81001; 82150; 82270; 82550; 82948; 83036; 83605; 83690; 83735; 83880; 84484; 85025; 85027; 85610; 85730; 87040; 93005; 96365; 97161; 99285; A9270; C9113; J0696; J2543; J3475; J3480; J7030; Q9967; S0138; S0164; XXXXX